=== PATIENT | female | born 1950 | race Caucasian/White ===

== ENCOUNTER 2020-06-01 19:37 | Inpatient (IN) | payer OTHER, SELFPAY ==
--- NOTE | ~2020-06-01 | NM_ITS ---
EXAMINATION: NM josefina stress w perfusion DATE: 06/03/2020 10:17 INDICATION: Preoperative risk assessment. Cardiac risk factors of hypertension. TECHNIQUE: Rest images were obtained following intravenous administration of 10.5 mCi Tc99m tetrofosm in (Myoview). The patient was infused intravenously with Lexiscan (Regadenoson). Then, 32.1 mCi Tc99m tetrofosmin (Myoview) was administered intravenously, and stress images were obtained. Data was jaclyn nstructed into short axis and horizontal and vertical long axis SPECT images. Gated SPECT images were also obtained. COMPARISON: None. FINDINGS: There is no definite reversible or fixed perfusion abnormality to suggest ischemia or infar ction. There is normal left ventricular chamber size, wall motion and ejection fraction. Left ventr icular ejection fraction measures 59%. IMPRESSION: 1. Normal myocardial perfusion at rest and during stress. 2. Left ventricular ejection fraction measuring 59%. Reviewed, dictated and finalized at location A.
--- NOTE | ~2020-06-01 | US_ITS ---
US renal BI 06/04/2020 11:36 Procedure: Realtime transabdominal ultrasound of the kidneys and bladder. Indication: Elevated creatinine Comparison: No prior studies for comparison. Findings: Renal echotexture is normal bilaterally without contour deforming mass or renal calculus. T he right kidney measures 8.5 cm and left kidney measures 8.5 cm. There is mild left hydronephrosis. Impression: 1: Mild left hydronephrosis. Otherwise, unremarkable renal ultrasound. Reviewed, dictated and finalized at location A. Impression: 1: Mild left hydronephrosis. Otherwise, unremarkable renal ultrasound.
--- NOTE | ~2020-06-01 | XR_ITS ---
EXAMINATION: XR hip LT 2V w AP pelvis EXAM DATE: 06/01/2020 20:50 INDICATION: Fall, left hip fracture. TECHNIQUE: Left hip frontal, crosstable lateral projections for interpretation. Frontal projection pe lvis. There is no prior study for comparison. FINDINGS: There is acute closed posttraumatic comminuted left hip intertrochanteric fracture with sulaiman e posterior medial angulation and some displacement. The pelvic ring appears intact. There are arteri al calcifications, arteriosclerosis. No radiopaque foreign bodies identified. IMPRESSION: Acute comminuted left hip intertrochanteric fracture with some angulation, displacement. Reviewed, dictated and finalized at location A. IMPRESSION: Acute comminuted left hip intertrochanteric fracture with some angu lation, displacement.
--- NOTE | ~2020-06-01 | XR_ITS ---
EXAMINATION: XR surgery orthopedic EXAM DATE: 06/03/2020 16:38 INDICATION: Left hip fracture, gamma nail insertion. TECHNIQUE: Fluoroscopy used during XR surgery orthopedic performed by Dr. Jay Reyes MD. The DAP for this procedure was 0.7 mGym2. FINDINGS: Images demonstrate comminuted left hip intertrochanteric and trochanteric fractures which have been surgically fixed with a gamma nail. Correlate with procedure note. IMPRESSION: Fluoroscopy used during XR surgery orthopedic. Reviewed, dictated and finalized at location A.
--- NOTE | ~2020-06-01 | XR_ITS ---
EXAMINATION: XR chest 1V portable EXAM DATE: 06/01/2020 20:49 INDICATION: Fall, hip fracture. Hypertension. TECHNIQUE: Portable AP frontal chest x-ray was obtained. There is no prior study for comparison. FINDINGS: The lungs are clear. There are no pleural effusions. Cardiac silhouette is prominent but magnified on this AP technique. There is no pneumothorax suspected. The bones are osteopenic. The re are bony degenerative changes. There are old right rib fractures. Right shoulder hardware. There i s aortic arteriosclerosis. IMPRESSION: No acute cardiopulmonary findings. Reviewed, dictated and finalized at location A.
[2020-06-01 19:36] VITALS: BP 191/80; PULSE 93; RESP 17; O2SAT 100
--- NOTE | 2020-06-01 19:52 | ECG_ITS ---
Measurements Intervals [place] Rate: 95 P: 28 AL: 170 QRS: 9 QRSD: 78 T: 59 QT: 325 QTc: 410 Interpretive Statements SINUS RHYTHM VOLTAGE CRITERIA FOR LVH BORDERLINE ST-T WAVE ABNORMALITY- HIGH LATERAL LEADS BASELINE ARTIFACT- I, II, III BORDERLINE ECG Electronically Signed On 06-02-2020 6:58:09 CDT by Praneeth Vergara D.O.
--- NOTE | 2020-06-01 19:52 | ED.FALL ---
HPI - Fall General Chief Complaint: Fall Stated Complaint: FALL, HIP Time Seen by Provider: 06/01/20 19:38 History of Present Illness HPI Narrative: Trip and fall this evening this evening. Pain in the left hip. Severe. Associated with shortening and rotation of the left leg. She denies hitting her head or sustaining any other injury. No syncope, seizure, weakness, laceration Related Data Home Medications Medication Instructions Recorded Confirmed Keyla SoloStar U-300 Insulin 35 unit SUBCUT DAILY 06/01/20 06/01/20 alendronate 70 mg PO WEEKLY 06/01/20 06/01/20 aspirin 81 mg PO DAILY 06/01/20 06/01/20 atorvastatin 40 mg PO HS 06/01/20 06/01/20 ferrous sulfate 325 mg PO BID 06/01/20 06/01/20 insulin aspart U-100 [Novolog 5 unit SUBCUT TID 06/01/20 06/01/20 Flexpen U-100 Insulin] mirtazapine 30 mg PO HS 06/01/20 06/01/20 omeprazole 40 mg PO DAILY 06/01/20 06/01/20 ondansetron 4 mg PO Q6H PRN 06/01/20 06/01/20 Allergies Allergy/AdvReac Type Severity Reaction Status Date / Time No Known Allergies Allergy Verified 06/01/20 19:46 Review of Systems Review of Systems: All systems reviewed & are unremarkable except as noted in HPI and below Constitutional: Constitutional: Denies fever(s) and Denies weakness ENT: Denies dizziness Cardiovascular: Cardiovascular: Denies chest pain Respiratory: Respiratory: Denies dyspnea Musculoskeletal: Musculoskeletal: Denies back pain Neurologic: Denies confusion, Denies dizziness and Denies weakness [facility] Past Medical History Medical History Essential hypertension Hyperlipidemia Iron deficiency anemia Macular degeneration Type 2 diabetes mellitus Vitamin D deficiency Surgical History Surgical History History of shoulder fracture status post ORIF Status post bilateral cataract extraction Family History Family History Father Lymphoma Mother Heart disease S/P CABG x 5 Social History Social History Social History: The patient lives in [place] with her sister and a friend. She has never been and does not have any children. 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 She is a lifelong nonsmoker and does not drink alcohol or use illicit substances. Between the 3 of them they have 6 dogs in the home. Primary care physician: Dr. Kendrick She does not have any advanced directives. She would like her sister Dariela to be her surrogate decision maker. Smoking status: Never smoker Alcohol intake: current Drinks per week: 1 Substance use: never Gender identity (if verbalized by the patient): Female Spiritual care concerns: No Exam Const: General: no acute distress and alert Orientation/consciousness: patient oriented x3 HENMT: Head: normal to inspection Resp: Effort & Inspection: normal respiratory effort Auscultation: clear to auscultation bilaterally Cardio: Rate: regular rate Rhythm: regular rhythm Skin: General skin exam: pallor Wounds: no wounds Neuro: General: patient oriented x3, moves all extremities, no focal motor deficits and CN's II-XI intact bilaterally Speech: normal speech Extrem: Other: Left hip deformity and tenderness. Left leg shortened and internally rotated. Course Vital Signs Vital signs: Vital Signs Pulse Rate 93 06/01/20 19:36 Respiratory Rate 17 06/01/20 19:36 Blood Pressure 191/80 H 06/01/20 19:36 Pulse Oximetry 100 06/01/20 19:36 Temperature 36.3 C L 06/06/20 06:00 Pulse Rate 93 06/06/20 06:00 Respiratory Rate 16 06/06/20 06:00 Blood Pressure 153/51 H 06/06/20 06:00 Pulse Oximetry 98 06/06/20 09:50 MDM - Fall Medical Records Attestation: I reviewed the patient's medical records. Lab Data Attestation: I reviewed the pa
[2020-06-01] MEDS: MORPHINE SULFATE 4 MG/ML INJ IV PUSH ×2 (20:06→22:15)
[2020-06-01 20:42] LABS: Basophils Absolute Auto 0.1 K/mm3 (0.0-0.1); Basophils Percent Auto 0.6 % (0.2-1.2); Eosinophils Absolute Auto 0.3 K/mm3 (0-0.3); Eosinophils Percent Auto 2.4 % (0-4.4); Hematocrit 32.4 % (37.0-47.0); Hemoglobin 10.2 g/dL (12.0-15.0); Immature Granulocyte Absolute 0.09 K/mm3 (0.00-0.031); Immature Granulocyte Percent A 0.7 % (0-0.5); Lymphocytes Absolute Auto 2.78 K/mm3 (0.9-3.2); Lymphocytes Percent Auto 21.8 % (18.3-44.2); Mean Corpuscular HGB Conc 31.5 g/dl (32-36); Mean Corpuscular Hemoglobin 30.1 pg (26-34); Mean Corpuscular Volume 95.6 fl (80-100); Mean Platelet Volume 9.6 fl (7.4-10.4); Monocytes Percent Auto 7.8 % (2.6-8.5); Neutrophils Absolute Auto 8.5 K/mm3 (1.3-6.7); Neutrophils Percent Auto 66.7 % (45.5-73.1); Platelet Count Result 371 k/mm3 (150-375); Red Blood Count 3.39 M/mm3 (4.2-5.4); Red Cell Distribution Width 13.4 % (11.5-14.5); White Blood Count 12.7 K/mm3 (4.5-10.0)
[2020-06-01 20:52] LABS: Partial Thromboplastin Time 24.2 SECONDS (22.3-36.8); Prothrombin Time 12.5 Seconds (11.1-14.7)
[2020-06-01 20:59] LABS: Anion Gap 7 mmol/L (8-16); Blood Urea Nitrogen 36 mg/dL (7-17); Carbon Dioxide 20 mmol/L (22-30); Chloride 109 mmol/L (98-107); Estimated CRCL calculation 18 ml/min; Estimated Glomerular Filt Rate 22; Glucose 163 mg/dL (65-105); Potassium 6.3 mmol/L (3.4-5.0); Sodium 136 mmol/L (137-145)
[2020-06-01] MEDS: INSULIN HUMAN REGULAR (*BKC) 100 UNITS/ML 10 UNITS IV PUSH ×2 (21:58→23:53)
[2020-06-01] MEDS: CALCIUM GLUCONATE 1,000 MG/10 ML VIAL 1000 MG IV PUSH (21:58)
[2020-06-01] MEDS: DEXTROSE 50% 25 GM/50 ML SYRINGE IV PUSH (21:59)
[2020-06-01] MEDS: SODIUM CHLORIDE 0.9% IV 1,000 ML 999 ML IV CONT (22:01)
[2020-06-01 22:20] LABS: Add Urine Microscopic? YES; Appearance Urine Clear (Clear); Bilirubin Urine Negative (Negative); Blood Urine 1+ (Negative); Color Urine Straw (Yellow); Glucose Urine UA 3+ mg/dL (Negative); Ketones Urine Negative (Negative); Leukocyte Esterase Ur Negative LEU/UL (Negative); Mucus Urine Rare /lpf; Nitrate Urine Negative (Negative); Protein Urine 1+ mg/dL (Negative); RBC Urine 0-2 /hpf (0-2); Specific Grav Ur 1.015 (1.001-1.035); Squamous Epithelial Cell Urine Rare /hpf (Few); Urobilinogen Urine Negative mg/dL (<2.0); WBC Urine 0-3 /hpf
[2020-06-01] MEDS: SODIUM POLYSTYRENE SULFONONATE 15 GM/60 ML BTL PO (22:42)
[2020-06-01 22:43] VITALS: BP 176/104; PULSE 108; RESP 18; O2SAT 100
[2020-06-01] MEDS: SODIUM BICARBONATE 8.4% 50 MEQ/50 ML VIAL IV PUSH (22:43)
[2020-06-01 22:54] LABS: Glucose Point of Care 357 (65-105)
[2020-06-01 23:15] VITALS: PULSE 107
[2020-06-01] MEDS: LABETALOL HCL INJ 100 MG/20 ML VIAL 20 MG IV PUSH (23:15)
[2020-06-01 23:42] VITALS: BP 162/68; PULSE 80; RESP 18; O2SAT 99
[2020-06-02] VITALS (23 sets, daily range): BP systolic 134–214; BP diastolic 62–80; PULSE 75–108; RESP 14–20; TEMP 35.7–36.6; O2SAT 98–100; BMI 23.6
[2020-06-02 00:11] LABS: Glucose Point of Care 263 (65-105)
[2020-06-02 00:19] LABS: Glucose Point of Care 221 (65-105)
[2020-06-02] MEDS: LACTATED RINGERS 1,000 ML 100 ML IV CONT ×2 (00:40→17:06)
[2020-06-02 00:45] LABS: Anion Gap 6 mmol/L (8-16); Blood Urea Nitrogen 34 mg/dL (7-17); Calcium 8.6 mg/dL (8.4-10.2); Carbon Dioxide 21 mmol/L (22-30); Chloride 110 mmol/L (98-107); Estimated CRCL calculation 21 ml/min; Estimated Glomerular Filt Rate 26; Glucose 224 mg/dL (65-105); Sodium 137 mmol/L (137-145)
--- NOTE | 2020-06-02 01:09 | ADMGEN ---
This patient, Joaquina Mcguire, was admitted to IMU Room 201-01 FROM ER 06/02/20 0000. Patient/family oriented to hospital policies and general routines including ID bracelet, bed and alarms, visiting hours, pain management, procedures, bathroom and other care routines, personal items, smoking policy, room service/diet, and visiting hours. Valuables list has been completed. Information on how to activate the Rapid Response Team has been discussed. Patient/Family are encouraged to report perceived risks to care and to ask questions if they do not understand what they are told or what they should do.
[2020-06-02] MEDS: ONDANSETRON INJ 4 MG/2 ML VIAL IV PUSH ×3 (01:41→23:26)
[2020-06-02] MEDS: MORPHINE SULFATE 4 MG/ML INJ IV PUSH ×2 (02:44→05:31)
[2020-06-02 04:27] LABS: Basophils Absolute Auto 0.1 K/mm3 (0.0-0.1); Basophils Percent Auto 0.5 % (0.2-1.2); Eosinophils Percent Auto 0.2 % (0-4.4); Hematocrit 26.9 % (37.0-47.0); Hemoglobin 8.4 g/dL (12.0-15.0); Immature Granulocyte Absolute 0.08 K/mm3 (0.00-0.031); Immature Granulocyte Percent A 0.5 % (0-0.5); Lymphocytes Absolute Auto 1.61 K/mm3 (0.9-3.2); Mean Corpuscular HGB Conc 31.2 g/dl (32-36); Mean Corpuscular Hemoglobin 30.2 pg (26-34); Mean Corpuscular Volume 96.8 fl (80-100); Mean Platelet Volume 9.4 fl (7.4-10.4); Monocytes Absolute Auto 1.1 K/mm3 (0.1-0.6); Monocytes Percent Auto 7.2 % (2.6-8.5); Neutrophils Absolute Auto 11.7 K/mm3 (1.3-6.7); Neutrophils Percent Auto 80.6 % (45.5-73.1); Platelet Count Result 315 k/mm3 (150-375); Red Blood Count 2.78 M/mm3 (4.2-5.4); Red Cell Distribution Width 13.3 % (11.5-14.5); White Blood Count 14.6 K/mm3 (4.5-10.0)
[2020-06-02 04:43] LABS: Anion Gap 6 mmol/L (8-16); Blood Urea Nitrogen 32 mg/dL (7-17); Calcium 8.8 mg/dL (8.4-10.2); Carbon Dioxide 23 mmol/L (22-30); Chloride 109 mmol/L (98-107); Estimated CRCL calculation 22 ml/min; Estimated Glomerular Filt Rate 28; Glucose 157 mg/dL (65-105); Potassium 5.9 mmol/L (3.4-5.0); Sodium 138 mmol/L (137-145)
[2020-06-02 05:24] LABS: Creatine Kinase 99 U/L (30-135)
[2020-06-02] MEDS: CALCIUM GLUC 1,000 MG/NS 50 ML 1,000 MG/50 ML BAG 300 MG IVPB (05:33)
[2020-06-02 06:19] LABS: Glucose Point of Care 153 (65-105)
[2020-06-02] MEDS: DEXTROSE 50% 25 GM/50 ML SYRINGE IV PUSH ×2 (06:42→11:34)
[2020-06-02] MEDS: INSULIN HUMAN REGULAR (*BKC) 100 UNITS/ML IV PUSH ×2 (06:42→11:34)
[2020-06-02 07:06] LABS: Glucose Point of Care 293 (65-105)
--- NOTE | 2020-06-02 07:47 | PM.CNOR ---
Assessment and Plan Additional Plan Patient is a 70-year-old female who lives in [place] and was here locally at a relative's visitation and stumbled on some rocks outside of the home and sustained a comminuted displaced left intertrochanteric hip fracture. She denies any other injury. Her past medical history is not yet noted in the chart. She does have history of osteoporosis and insulin-dependent diabetes and hypertension. Her vitamin-D level is very low at 14 and we have ordered supplementation. She also has chronic renal failure and her admitting creatinine was 2.2. His chronic anemia her hemoglobin at this time is 8.4 down from 10.4 last night. She takes iron chronically. Her family history is significant for her grandmother having the severe heart attack at in her 70s and her mother undergoing coronary artery bypass. Patient states she has had no history of any heart problems except for the hypertension. Approximately 5 years ago she had a reverse right total shoulder arthroplasty did not have any heart problems with that procedure. She has no known drug allergies. Her white count is elevated at 14.8. Urine [place] is showed no signs of infection there. On exam she is alert and oriented. The left leg is shortened about an inch externally rotated 90?. She has it position comfortably. She does complain of some cramping at the left thigh. She is throwing up and I think this is due to the 4 mg IV morphine dose and I have reduced to 2 mg every 1 hour IV as needed and we will also add IV Tylenol for preoperative pain control. She has a 2+ dorsalis pedis pulse palpable. She denies numbness or tingling in the foot or ankle and has no lower extremity swelling skin looks healthy. The knee shows no swelling. Impression patient has a comminuted 4 part intertroch subtroch femur fracture and will recur this will require open reduction internal fixation. She is a community ambulator. She does have some significant risk factors for coronary artery disease and risk of complications both cardiac and renal postoperatively. I would recommend we asked the non food receiving clerk to see her this morning and I have made arrangements if she is felt to be stable to proceed with surgery for open reduction internal fixation at 3:30 a.m. this afternoon. Her potassium on admission was critically elevated at 6.9 and is now down to 5.9. I have discussed risks of surgery with her in detail. She has no personal or family history of DVT. She has had no recent infections that she knows of. I discussed with her that she is at significant risk for heart complications and her renal of failure when compared to the usual patient. These complications and can be severe and risk of mortality is present the situation. She understands wished to proceed as soon as we can as she is quite uncomfortable of course. History of Present Illness HPI Consult date: 06/02/20 Chief complaint: Left hip fracture, hyperkalemia [facility] Family History Family History (Updated 06/02/20 @ 01:11 by Marina Gomez RN) Father Cancer Mother Heart disease Social History Social History Smoking status: Never smoker Alcohol intake: current Drinks per week: 1 Substance use: never Gender identity (if verbalized by the patient): Female Sexual Orientation (if Verbalized by the Patient): Straight or Heterosexual Spiritual care concerns: No Meds Home Medications and Allergies Home Medications Medication Instructions Recorded Confirmed Type alendronate 70 mg PO WEEKLY 06/01/20 06/01/20 History amlodipine [Norvasc] 2.5 mg PO DAILY 06/01/20 06/01/20 History aspirin 81 mg PO DAILY 06/01/20 06/01/20 History atorvastatin 40 mg PO HS 06/01/20 06/01/20 History ferrous sulfate 325 mg PO BID 06/01/20 06/01/20 History insulin aspart U-100 [Novolog 5 unit SUBCUT TID 06/01/20 06/01/20 History Flexpen U-100 Insulin] insulin glargine U-300 conc 35 unit ODEN
[2020-06-02] MEDS: MORPHINE SULFATE 2 MG/ML INJ IV PUSH ×4 (07:58→23:26)
[2020-06-02] MEDS: amLODIPine BESYLATE 2.5 MG TABLET PO (08:01)
[2020-06-02] MEDS: PANTOPRAZOLE 40 MG TABLET PO ×2 (08:01→18:00)
[2020-06-02] MEDS: FERROUS SULFATE 324 MG TABLET PO ×2 (08:01→18:00)
--- NOTE | 2020-06-02 08:31 | PM.IMHP ---
H&P: HPI History of Present Illness Date/Time: 06/02/20 06:00 Chief complaint: Fall with left hip pain Narrative: Joaquina Mcguire is a 70 year old female with a past medical history of osteoporosis, hypertension, type 2 diabetes mellitus and iron deficiency anemia who presented to the ER after having fallen and developing left hip pain. The patient reports that she was at her 26-year-old niece in-law's when she stumbled on some paving stones and fell. She landed on her left hip. She does not think that she hit her head or lost consciousness. She had immediate severe pain in her left hip. Her leg was shortened and rotated. The patient reports cramping pain in her left hip. Pain is even made worse with deep breathing. The patient reports that prior to her fall she was in her usual state of health. She admits that she may not have been drinking enough fluids over the last couple of days. She denies any abdominal pain. She recently was started on Norvasc 2.5 mg on 04/25/2020. She has been on lisinopril for many years. She denies taking any potassium supplements. She has not noticed a change in urinary frequency, amount, color or urgency. She denies any history of chronic kidney disease. she has had some nausea since she received morphine for her hip pain. Prior to her fall she was not having any nausea or vomiting. She has not been having any chest pain or shortness of breath. She had not noticed any lower extremity swelling, orthopnea or paroxysmal nocturnal dyspnea. She does report diarrhea associated with ferrous sulfate. She usually has to take Imodium frequently. She does have type 2 diabetes mellitus and her hemoglobin A1c earlier this year was as high as 14 but she reports she has gotten down to around 8 with medications. The patient lives in [place] in her primary care doctor is Dr. Kendrick. Review of Systems Review of Systems: Narrative: 12 systems were reviewed with pertinent positives and negatives per HPI. Except as documented in the HPI, all other systems were reviewed and are negative. [facility] Past Medical History Medical History (Updated 06/02/20 @ 09:19 by Lashae Camacho DO) Essential hypertension Hyperlipidemia Iron deficiency anemia Macular degeneration Type 2 diabetes mellitus Vitamin D deficiency Surgical History Surgical History (Updated 06/02/20 @ 09:07 by Lashae Camacho DO) History of shoulder fracture status post ORIF Status post bilateral cataract extraction Family History Family History Father Lymphoma Mother Heart disease S/P CABG x 5 Social History Social History (Updated 06/02/20 @ 09:15 by Lashae Camacho DO) Social History: The patient lives in [place] with her sister and a friend. She has never been and does not have any children. 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 She is a lifelong nonsmoker and does not drink alcohol or use illicit substances. Between the 3 of them they have 6 dogs in the home. Primary care physician: Dr. Kendrick She does not have any advanced directives. She would like her sister Dariela to be her surrogate decision maker. Smoking status: Never smoker Alcohol intake: current Drinks per week: 1 Substance use: never Gender identity (if verbalized by the patient): Female Sexual Orientation (if Verbalized by the Patient): Straight or Heterosexual Spiritual care concerns: No Meds Home Medications and Allergies Home Medications Medication Instructions Recorded Confirmed Type alendronate 70 mg PO WEEKLY 06/01/20 06/01/20 History amlodipine [Norvasc] 2.5 mg PO DAILY 06/01/20 06/01/20 History aspirin 81 mg PO DAILY 06/01/20 06/01/20 History atorvastatin 40 mg PO HS 06/01/20 06/01/20 History ferrous sulfate 325 mg PO BID 06/01/20 06/01/20 History insulin aspart U-100 [Novolog 5 unit SUBCUT TID 06/01/20 06/01/20 History Flex
--- NOTE | 2020-06-02 10:27 | PM.CNCAR ---
Assessment and Plan Assessment and plan (1) Acute renal failure: Code(s): N17.9 - Acute kidney failure, unspecified Status: Acute Assessment and Plan: Per primary service. IV fluids. Manage hyperkalemia. Continue serial potassium measurements. Defer to primary service for management in this regard. Discontinue lisinopril. Avoid potassium supplementation. this would need to be corrected prior to ischemic evaluation and/or proceeding to the operating room. (2) Preoperative cardiovascular examination: Code(s): Z01.810 - Encounter for preprocedural cardiovascular examination Status: Acute Assessment and Plan: Patient has low functional capacity well less than 4 Mets of by her description of activity tolerance. Therefore, given her risk factors, fatigue, and low functional status noninvasive ischemic evaluation with Lexiscan nuclear stress advised for risk stratification. provided hyperkalemia is resolved, BP in H&H stable plan to proceed with stress test 1st thing tomorrow morning and if without significant reversible ischemia and preserved LV function anticipate patient may proceed if necessary to the OR if she otherwise medically stable. Recommendations to follow. (3) Hyperkalemia: Code(s): E87.5 - Hyperkalemia Status: Acute Assessment and Plan: As above. (4) Anemia: Code(s): D64.9 - Anemia, unspecified Status: Acute Assessment and Plan: H&H decline 2 g since admission. Likely delutional secondary to intravascular volume depletion, underlying anemia and IV fluid. Follow H&H to exclude active bleed although no evidence at this time. Disproportionate increment in Hgb after 1 unit packed red blood cells. Repeat H&H. (5) Fracture of left hip due to osteoporosis: Code(s): M80.052A - Age-related osteoporosis with current pathological fracture, left femur, initial encounter for fracture Status: Acute Assessment and Plan: Per Orthopedic surgery. ORIF recommended per their note. DVT prophylaxis (6) Status post fall: Code(s): Z91.81 - History of falling Status: Acute Assessment and Plan: As above. (7) Dyslipidemia: Code(s): E78.5 - Hyperlipidemia, unspecified Status: Acute Assessment and Plan: continue atorvastatin. (8) Hypertension: Code(s): I10 - Essential (primary) hypertension Status: Acute Assessment and Plan: BP uncontrolled earlier today No doubt exacerbated by pain. adjustment in antihypertensive regimen. Deferred to PCP at this time. (9) Diabetes mellitus: Code(s): E11.9 - Type 2 diabetes mellitus without complications Status: Acute Assessment and Plan: Per primary service History of Present Illness History of Present Illness Consult date/time: Date of Service: 06/02/20 10:27 This is a cardiology consultation at the request of Dr. Reyes for our opinion regarding preoperative cardiovascular risk assessment. Requesting physician: Jay Reyes MD Consult reason: pre-op evaluation Reason For Visit: Fall with left hip pain Narrative: Patient is a 70-year-old female with a past medical history significant for type 2 diabetes mellitus uncontrolled, anemia, hypertension, osteoporosis who presented the ER with complaint of left hip pain after having fallen stumbling on paving stones at a . There is no report of head injury or LOC. Patient denies chest pain or shortness of breath this time. Patient denies prior known history of CAD, myocardial infarction or CHF. Patient admits she is sedentary and ambulates fairly little. She reports difficulty climbing steps, fatigue with activity although she denies alysa chest pain. She does note some shortness of breath particularly when she engages in longer walking but states chores around the home or predominantly performed by her sister. We have been asked to evaluate th
[2020-06-02] MEDS: TUBING, BLOOD PLUM PUMP TUBING 1 EACH XX (11:02)
[2020-06-02] MEDS: SODIUM CHLORIDE 0.9% IV 250 ML 30 ML IV CONT (11:02)
[2020-06-02 11:09] LABS: Anion Gap 6 mmol/L (8-16); Blood Urea Nitrogen 30 mg/dL (7-17); Calcium 9.2 mg/dL (8.4-10.2); Carbon Dioxide 25 mmol/L (22-30); Chloride 104 mmol/L (98-107); Estimated CRCL calculation 24 ml/min; Estimated Glomerular Filt Rate 30; Glucose 225 mg/dL (65-105); Potassium 5.9 mmol/L (3.4-5.0); Sodium 135 mmol/L (137-145)
[2020-06-02] MEDS: hydrALAZINE HCL 20 MG/ML VIAL 10 MG IV PUSH (11:34)
[2020-06-02] MEDS: FUROSEMIDE INJ 40 MG/4 ML VIAL IV PUSH (11:35)
[2020-06-02] MEDS: CALCIUM GLUC 1,000 MG/NS 50 ML 1,000 MG/50 ML BAG 100 MG IVPB (12:15)
[2020-06-02] MEDS: INSULIN ASPART (*BKC) 100 UNITS/ML SUB-Q ×2 (12:30→17:06)
[2020-06-02 12:32] LABS: Glucose Point of Care 340 (65-105)
[2020-06-02 13:32] LABS: Hemoglobin A1C 8.5 % (<5.7)
--- NOTE | 2020-06-02 14:01 | PM.IMPN ---
Progress Note: A&P Assessment and Plan (1) Fracture of left hip due to osteoporosis: Code(s): M80.052A - Age-related osteoporosis with current pathological fracture, left femur, initial encounter for fracture Status: Acute Assessment and Plan: S/p ground level fall on 06/01. No cardiac symptoms but she does have several cardiac risk factors including diabetes and until recently was relatively uncontrolled, essential hypertension and hyperlipidemia. Cardiology has been consulted for preop cardiac clearance. Dr. Reyes following and appreciate recommendations; awaiting preop cardiac clearance. Pain appears to be well controlled, however she may be having some nausea/vomiting with morphine. Await preop evaluation and further rec from Dr. Reyes from there Consider alternative pain medications if continued n/v Monitor (2) Hyperkalemia: Code(s): E87.5 - Hyperkalemia Status: Acute Assessment and Plan: K 5.9 again this morning. She has been given multiple rounds of calcium, bicarb, insulin/dextrose with refractory hyperkalemia. IV lasix, calcium and insulin/dextrose given again later this morning. She has no chest pains/palpitations. She does not take K supplements and has been taking lisinopril for many years. Will do BMP this afternoon for reevaluation Continue IVF as she may be volume depleted Monitor closely Consider Nephrology consult if not improving. (3) Renal failure: Code(s): N19 - Unspecified kidney failure Status: Acute Assessment and Plan: Although the patient denies history of chronic renal failure, she likely does have some baseline kidney insufficiency that she is unaware of. Cr slowly improving to 1.70 Will provide IV fluid hydration and repeat electrolyte panel as discussed above. Monitor closely Consider Nephrology consult if no improvement (4) Diabetes mellitus: Code(s): E11.9 - Type 2 diabetes mellitus without complications Status: Acute Assessment and Plan: Reportedly, patient has had significant improvement in her A1c (14 several months ago down to around 8 just this past couple of weeks per patient). A1c 8.5 today Will do 35 u Lantus daily 5 u short acting insulin with meals Accuchecks ACHS, hypoglycemia protocol, correctional insulin, diabetic diet if tolerated Monitor closely (5) Hypertension: Code(s): I10 - Essential (primary) hypertension Status: Acute Assessment and Plan: BP has been significantly elevated into 200s sys earlier this morning; improved with IV hydralazine, although still elevated Continue home antihypertensives IV hydralazine PRN Monitor and adjust accordingly (6) Dyslipidemia: Code(s): E78.5 - Hyperlipidemia, unspecified Status: Acute Assessment and Plan: Will do CMP tomorrow Continue statin (7) Anemia: Code(s): D64.9 - Anemia, unspecified Status: Acute Assessment and Plan: Hgb 8.4 this morning; being transfussed [address] Reyes. Monitor closely Transfuse PRN Continue iron supplement if not NPO Subjective Date/time seen: 06/02/20 14:01 Interval history: Patient is a 70 year old female with a past medical history of osteoporosis, hypertension, type 2 diabetes mellitus and iron deficiency anemia who is here for evaluation of left hip fracture s/p fall on 06/01. Patient states she feels okay today, although still having ongoing nausea/vomiting she thinks is associated with morphine and some [place] in her b/l lower legs. She has no other complaints other than wanting to eat. Denies f/c/s, headaches, dizziness, lightheadedness, cp/palpitations, sob/cough, d/c, abd
[2020-06-02 15:27] LABS: Hematocrit 37.8 % (37.0-47.0); Hemoglobin 12.6 g/dL (12.0-15.0); Mean Corpuscular HGB Conc 33.3 g/dl (32-36); Mean Corpuscular Volume 93.1 fl (80-100); Mean Platelet Volume 9.7 fl (7.4-10.4); Platelet Count Result 308 k/mm3 (150-375); Red Blood Count 4.06 M/mm3 (4.2-5.4); Red Cell Distribution Width 13.6 % (11.5-14.5); White Blood Count 15.7 K/mm3 (4.5-10.0)
[2020-06-02 15:40] LABS: Anion Gap 10 mmol/L (8-16); Blood Urea Nitrogen 30 mg/dL (7-17); Calcium 9.6 mg/dL (8.4-10.2); Carbon Dioxide 23 mmol/L (22-30); Chloride 103 mmol/L (98-107); Estimated CRCL calculation 22 ml/min; Estimated Glomerular Filt Rate 28; Glucose 281 mg/dL (65-105); Potassium 5.8 mmol/L (3.4-5.0); Sodium 136 mmol/L (137-145)
[2020-06-02 16:09] LABS: Glucose Point of Care 237 (65-105)
[2020-06-02] MEDS: SODIUM POLYSTYRENE SULFONONATE 15 GM/60 ML BTL PO (18:00)
[2020-06-02] MEDS: MIRTAZAPINE SOLTAB 15 MG TAB.DISPER 30 MG PO (20:00)
[2020-06-02] MEDS: ATORVASTATIN 40 MG TABLET PO (20:00)
[2020-06-02 20:44] LABS: Glucose Point of Care 188 (65-105)
[2020-06-02] MEDS: INSULIN GLARGINE (*BKC) 100 UNITS/ML 35 UNITS SUB-Q (21:12)
[2020-06-02 21:33] LABS: Anion Gap 11 mmol/L (8-16); Blood Urea Nitrogen 32 mg/dL (7-17); Calcium 9.3 mg/dL (8.4-10.2); Carbon Dioxide 25 mmol/L (22-30); Chloride 100 mmol/L (98-107); Estimated CRCL calculation 22 ml/min; Estimated Glomerular Filt Rate 28; Glucose 207 mg/dL (65-105); Potassium 5.4 mmol/L (3.4-5.0); Sodium 136 mmol/L (137-145)
[2020-06-03] VITALS (21 sets, daily range): BP systolic 109–190; BP diastolic 51–76; PULSE 83–119; RESP 15–22; TEMP 36.1–37.2; O2SAT 95–100
--- NOTE | 2020-06-03 | EST_ITS ---
Patient Info Name: Joaquina Mcguire Age: 70 years : 1950 Gender: Female Ht: 64 in Wt: 137 lbs BSA: 1.68 m2 Heart Rhythm: Sinus Rhythm Exam Date: 06/03/2020 8:29 AM Exam Location: [facility] Stress Patient Status: Inpatient Admit Date: 06/01/2020 Staff Ordering Physician: Eduardo Saldana MD Attending Provider: Keyshawn Lennon PA-C Exercise Technologist: Gabrielle Davidson RDCS Exam Type: CA stress josefina w NM Study Info Indications Z01.818 - Encounter for other preprocedural examination A regadenoson stress test was performed. Summary 1. No changes meeting strict criteria for myocardial ischemia with Lexiscan compared to baseline. 2. No arrhythmias were observed during the examination. 3. No chest discomfort with stress test. 4. Please correlate with nuclear medicine images, reported separately. Protocol: Lexiscan Stress ECG Details Stage: REST Duration (min): 6 min : 49 sec HR (bpm): 113 SBP (mmHg): 200 DBP (mmHg): 66 Stage: REST Duration (min): 18 min : 19 sec HR (bpm): 113 SBP (mmHg): 200 DBP (mmHg): 66 Stage: STAGE 1 Duration (min): 1 min : 0 sec HR (bpm): 125 SBP (mmHg): 200 DBP (mmHg): 66 Stage: RECOVERY Duration (min): 1 min : 0 sec HR (bpm): 125 SBP (mmHg): 170 DBP (mmHg): 52 Stage: RECOVERY Duration (min): 2 min : 0 sec HR (bpm): 124 SBP (mmHg): 170 DBP (mmHg): 52 Stage: RECOVERY Duration (min): 3 min : 0 sec HR (bpm): 121 SBP (mmHg): 170 DBP (mmHg): 52 Stage: RECOVERY Duration (min): 4 min : 0 sec HR (bpm): 121 SBP (mmHg): 170 DBP (mmHg): 52 Stage: RECOVERY Duration (min): 4 min : 48 sec HR (bpm): 115 SBP (mmHg): 172 DBP (mmHg): 56 Rest HR: 113 bpm Peak HR: 126 bpm Rest Sys BP: 200 mmHg Peak Sys BP: 172 mmHg Max Pred HR: 149 bpm % Max Pred HR: 85 % Target HR: 127 bpm Max RPP: 21,672 bpm*mmHg BP Response: Normal blood pressure response Termination Reason: Completed protocol Cardiac Symptoms: None Total Time: 1 min : 0 sec Rest Robbins BP: 66 mmHg Peak Robbins BP: 56 mmHg Total Dose: 0.4 mg Resting ECG Sinus tachycardia, nonspecific ST abnormality inferior leads. Stress ECG No changes meeting strict criteria for myocardial ischemia with Lexiscan compared to baseline. Arrhythmias No arrhythmias were observed during the examination. Report Signatures
[2020-06-03] MEDS: LACTATED RINGERS 1,000 ML 100 ML IV CONT ×2 (02:13→10:28)
[2020-06-03 04:28] LABS: Hematocrit 33.2 % (37.0-47.0); Hemoglobin 10.9 g/dL (12.0-15.0); Mean Corpuscular HGB Conc 32.8 g/dl (32-36); Mean Corpuscular Hemoglobin 30.7 pg (26-34); Mean Corpuscular Volume 93.5 fl (80-100); Mean Platelet Volume 9.4 fl (7.4-10.4); Platelet Count Result 305 k/mm3 (150-375); Red Blood Count 3.55 M/mm3 (4.2-5.4); Red Cell Distribution Width 13.8 % (11.5-14.5); White Blood Count 15.5 K/mm3 (4.5-10.0)
[2020-06-03 04:57] LABS: Alanine Aminotransferase 15 U/L (4-35); Albumin Level 3.6 g/dL (3.5-5.1); Alkaline Phosphatase 91 U/L (38-126); Anion Gap 8 mmol/L (8-16); Aspartate Amino Transferase 16 U/L (14-36); Bilirubin,Total 0.4 mg/dL (0.2-1.3); Blood Urea Nitrogen 31 mg/dL (7-17); Calcium 8.9 mg/dL (8.4-10.2); Carbon Dioxide 26 mmol/L (22-30); Chloride 100 mmol/L (98-107); Estimated CRCL calculation 22 ml/min; Estimated Glomerular Filt Rate 28; Glucose 183 mg/dL (65-105); Magnesium 1.3 mg/dL (1.6-2.3); Potassium 5.2 mmol/L (3.4-5.0); Sodium 134 mmol/L (137-145)
[2020-06-03] MEDS: MORPHINE SULFATE 2 MG/ML INJ IV PUSH (05:28)
--- NOTE | 2020-06-03 10:19 | PM.PNCARD ---
Progress Note: A&P Assessment and Plan (1) Acute renal failure: Code(s): N17.9 - Acute kidney failure, unspecified Status: Acute Assessment and Plan: IV fluids. Potassium 5.4 this morning. Creatinine is stable Defer to primary service for management. Avoid potassium supplementation. (2) Preoperative cardiovascular examination: Code(s): Z01.810 - Encounter for preprocedural cardiovascular examination Status: Acute Assessment and Plan: She has low functional capacity well less than 4 Mets of by her description of activity tolerance. Given her risk factors, fatigue, and low functional status Lexiscan nuclear stress risk stratification. Lexiscan pending. (3) Hyperkalemia: Code(s): E87.5 - Hyperkalemia Status: Acute Assessment and Plan: As above. (4) Anemia: Code(s): D64.9 - Anemia, unspecified Status: Acute Assessment and Plan: H&H decline 2 g since admission. Likely delutional secondary to intravascular volume depletion, underlying anemia and IV fluid. Follow H&H to exclude active bleed although no evidence at this time. Management per primary service (5) Fracture of left hip due to osteoporosis: Code(s): M80.052A - Age-related osteoporosis with current pathological fracture, left femur, initial encounter for fracture Status: Acute Assessment and Plan: Per Orthopedic surgery. ORIF recommended per their note. (6) Status post fall: Code(s): Z91.81 - History of falling Status: Acute Assessment and Plan: As above. (7) Dyslipidemia: Code(s): E78.5 - Hyperlipidemia, unspecified Status: Acute Assessment and Plan: Continue atorvastatin. (8) Hypertension: Qualifiers: Hypertension type: essential hypertension Qualified Code(s): I10 - Essential (primary) hypertension Code(s): I10 - Essential (primary) hypertension Status: Acute Assessment and Plan: BP remains elevated at times but improved. Management per primary team while avoiding ACEI or ARB (9) Diabetes mellitus: Code(s): E11.9 - Type 2 diabetes mellitus without complications Status: Acute Assessment and Plan: Per primary service Additional Plan Plan discussed with Dr Saldana 89906/03/2020 Subjective Date/time seen: 06/03/20 08:45 Assessment done in stress lab Interval history: Follow-up for: Preop assessment for left hip fracture status post fall 06/01. History of osteoporosis, hypertension, type 2 diabetes mellitus and iron deficiency anemia Date of service: 06/03/2020 Subjective: Denied any discomforts. No shortness of breath or lightheadedness. No further vomiting since yesterday evening. Did eat small amount of dinner. Review of Systems Review of Systems: All systems reviewed & are unremarkable except as noted in HPI and below Constitutional: Constitutional: Reports as per HPI, Reports body ache(s) and Reports fatigue Eyes: Eyes: Denies blurry vision ENT: Reports Normal hearing present and Denies epistaxis Cardiovascular: Cardiovascular: Reports as per HPI, Denies chest pain, Denies leg edema, Denies lightheadedness, Denies palpitations, Denies dyspnea and Denies dyspnea on exertion Respiratory: Respiratory: Reports as per HPI, Denies dyspnea, Denies dyspnea on exertion and Denies wheezing Gastrointestinal: Gastrointestinal: Reports as per HPI, Denies abdominal pain, Denies melena, Denies hematochezia, Denies nausea and Denies vomiting Genitourinary: Genitourinary: Denies hematuria and Denies dysuria Musculoskeletal: Musculoskeletal: Reports as per HPI, Repo
[2020-06-03] MEDS: ONDANSETRON INJ 4 MG/2 ML VIAL IV PUSH (10:22)
[2020-06-03 10:26] LABS: Glucose Point of Care 167 (65-105)
[2020-06-03] MEDS: PANTOPRAZOLE 40 MG TABLET PO ×2 (10:29→18:46)
[2020-06-03] MEDS: FERROUS SULFATE 324 MG TABLET PO ×2 (10:29→18:46)
[2020-06-03] MEDS: amLODIPine BESYLATE 5 MG TABLET PO (10:29)
[2020-06-03] MEDS: ASPIRIN 81 MG CHEWABLE TABLET PO (10:30)
[2020-06-03] MEDS: MAGNESIUM SULF 2 GM/WATER 50ML 2 GM/50 ML BAG IVPB (10:37)
--- NOTE | 2020-06-03 10:52 | P.PNIM_ITS ---
Progress Note: A&P Assessment and Plan (1) Fracture of left hip due to osteoporosis: Code(s): M80.052A - Age-related osteoporosis with current pathological fracture, left femur, initial encounter for fracture Status: Acute Assessment and Plan: S/p ground level fall on 06/01. No cardiac symptoms but she does have several cardiac risk factors including diabetes and, until recently, has relatively uncontrolled essential hypertension and hyperlipidemia. Cardiology has been consulted for preop cardiac clearance; Negative stress test today with normal EF. Dr. Reyes following and appreciate recommendations. Pain appears to be well controlled. Vomiting has improved * Await further rec from Dr. Reyes * Consider alternative pain medications if continued n/v * Monitor (2) Hyperkalemia: Code(s): E87.5 - Hyperkalemia Status: Acute Assessment and Plan: K 5.2; improved this morning. She has no chest pains/palpitations. She does not take K supplements and has been taking lisinopril for many years. * Will do BMP this evening after surgery to ensure K is normalizing * Continue IVF as she may be volume depleted * Monitor closely * Consider Nephrology consult if not improving. (3) Renal failure: Code(s): N19 - Unspecified kidney failure Status: Acute Assessment and Plan: Although the patient denies history of chronic renal failure, she likely does have some baseline kidney insufficiency that she is unaware of. Cr stable at 1.80 * Will provide IV fluid hydration and repeat electrolyte panel as discussed above. * Monitor closely * Consider Nephrology consult if no improvement (4) Diabetes mellitus: Code(s): E11.9 - Type 2 diabetes mellitus without complications Status: Acute Assessment and Plan: Reportedly, patient has had significant improvement in her A1c (14 several months ago down to around 8 just this past couple of weeks per patient). A1c 8.5 this stay * Will do 35 u Lantus daily * 5 u short acting insulin with meals * Accuchecks ACHS, hypoglycemia protocol, correctional insulin, diabetic diet if tolerated * Monitor closely (5) Hypertension: Qualifiers: Hypertension type: essential hypertension Qualified Code(s): I10 - Essential (primary) hypertension Code(s): I10 - Essential (primary) hypertension Status: Acute Assessment and Plan: BP has been significantly elevated into 200s sys earlier in stay; improved with IV hydralazine, although still elevated. Increase amlodipine to 5.0 mg daily * Lisinopril held due to renal function/hyperkalemia * Continue with increased dose of amlodipine for now * IV hydralazine PRN * Monitor and adjust accordingly (6) Dyslipidemia: Code(s): E78.5 - Hyperlipidemia, unspecified Status: Acute Assessment and Plan: LFTs wnl * Continue statin (7) Anemia: Code(s): D64.9 - Anemia, unspecified Status: Acute Assessment and Plan: Hgb 10.9 this morning after being transfused 1 u pRBC yesterday per Dr. Reyes. * Monitor closely * Transfuse PRN * Continue iron supplement if not NPO Subjective Date/time seen: 06/03/20 10:52 Interval history: Patient is a 70 year old female with a past medical history of osteoporosis, hypertension, type 2 diabetes
--- NOTE | 2020-06-03 10:52 | PM.IMPN ---
Progress Note: A&P Assessment and Plan (1) Fracture of left hip due to osteoporosis: Code(s): M80.052A - Age-related osteoporosis with current pathological fracture, left femur, initial encounter for fracture Status: Acute Assessment and Plan: S/p ground level fall on 06/01. No cardiac symptoms but she does have several cardiac risk factors including diabetes and, until recently, has relatively uncontrolled essential hypertension and hyperlipidemia. Cardiology has been consulted for preop cardiac clearance; Negative stress test today with normal EF. Dr. Reyes following and appreciate recommendations. Pain appears to be well controlled. Vomiting has improved Await further rec from Dr. Reyes Consider alternative pain medications if continued n/v Monitor (2) Hyperkalemia: Code(s): E87.5 - Hyperkalemia Status: Acute Assessment and Plan: K 5.2; improved this morning. She has no chest pains/palpitations. She does not take K supplements and has been taking lisinopril for many years. Will do BMP this evening after surgery to ensure K is normalizing Continue IVF as she may be volume depleted Monitor closely Consider Nephrology consult if not improving. (3) Renal failure: Code(s): N19 - Unspecified kidney failure Status: Acute Assessment and Plan: Although the patient denies history of chronic renal failure, she likely does have some baseline kidney insufficiency that she is unaware of. Cr stable at 1.80 Will provide IV fluid hydration and repeat electrolyte panel as discussed above. Monitor closely Consider Nephrology consult if no improvement (4) Diabetes mellitus: Code(s): E11.9 - Type 2 diabetes mellitus without complications Status: Acute Assessment and Plan: Reportedly, patient has had significant improvement in her A1c (14 several months ago down to around 8 just this past couple of weeks per patient). A1c 8.5 this stay Will do 35 u Lantus daily 5 u short acting insulin with meals Accuchecks ACHS, hypoglycemia protocol, correctional insulin, diabetic diet if tolerated Monitor closely (5) Hypertension: Qualifiers: Hypertension type: essential hypertension Qualified Code(s): I10 - Essential (primary) hypertension Code(s): I10 - Essential (primary) hypertension Status: Acute Assessment and Plan: BP has been significantly elevated into 200s sys earlier in stay; improved with IV hydralazine, although still elevated. Increase amlodipine to 5.0 mg daily Lisinopril held due to renal function/hyperkalemia Continue with increased dose of amlodipine for now IV hydralazine PRN Monitor and adjust accordingly (6) Dyslipidemia: Code(s): E78.5 - Hyperlipidemia, unspecified Status: Acute Assessment and Plan: LFTs wnl Continue statin (7) Anemia: Code(s): D64.9 - Anemia, unspecified Status: Acute Assessment and Plan: Hgb 10.9 this morning after being transfused 1 u pRBC yesterday per Dr. Reyes. Monitor closely Transfuse PRN Continue iron supplement if not NPO Subjective Date/time seen: 06/03/20 10:52 Interval history: Patient is a 70 year old female with a past medical history of osteoporosis, hypertension, type 2 diabetes mellitus and iron deficiency anemia who is here for evaluation of left hip fracture s/p fall on 06/01. Patient states she feels okay today, although just had an episode of emesis; nursing reports small amount without blood. Patient states left hip pain is reasonable with pain medication. She denies any eleni horses today. She is down about her recent in the family, but declines need for a
[2020-06-03] MEDS: LACTATED RINGERS 1,000 ML 30 ML IV CONT (14:30)
[2020-06-03] MEDS: VANCOMYCIN HCL 1,000 MG in SODIUM CHLORIDE 0.9% IV 250 ML IVPB (14:40)
--- NOTE | 2020-06-03 15:02 | WPDANESEPPF ---
Anes - Initial Pre Proc Eval Procedure: Operation Date: 06/03/20 15:30 Proposed Procedures p Left Intertrochanteric Nail - Jay Reyes MD Date/Time: 06/03/20 15:02 Surgeon: Keyshawn Lennon PA-C Pre Op Diagnosis: Fall with left hip pain Patient Data Age: 70 Gender: F Height: 5 ft 4 in Weight: 61.5 kg Last Vital Signs Temp 37.1 C 06/03/20 14:56 Pulse 112 H 06/03/20 14:56 Resp 18 06/03/20 14:56 BP 179/59 H 06/03/20 14:56 Pulse Ox 100 06/03/20 14:56 Allergies Allergy/AdvReac Type Severity Reaction Status Date / Time No Known Allergies Allergy Verified 06/01/20 19:46 Home Medications Medication Instructions Recorded Confirmed Type alendronate 70 mg PO WEEKLY 06/01/20 06/01/20 History amlodipine [Norvasc] 2.5 mg PO DAILY 06/01/20 06/01/20 History aspirin 81 mg PO DAILY 06/01/20 06/01/20 History atorvastatin 40 mg PO HS 06/01/20 06/01/20 History ferrous sulfate 325 mg PO BID 06/01/20 06/01/20 History insulin aspart U-100 [Novolog 5 unit SUBCUT TID 06/01/20 06/01/20 History Flexpen U-100 Insulin] insulin glargine U-300 conc 35 unit SUBCUT DAILY 06/01/20 06/01/20 History [Toujeo SoloStar U-300 Insulin] lisinopril 40 mg PO DAILY 06/01/20 06/01/20 History mirtazapine 30 mg PO HS 06/01/20 06/01/20 History omeprazole 40 mg PO DAILY 06/01/20 06/01/20 History ondansetron 4 mg PO Q6H PRN 06/01/20 06/01/20 History Laboratory Tests 06/02/20 06/02/20 06/02/20 08:08 15:19 15:19 WBC 15.7 K/mm3 H K/mm3 (4.5-10.0) RBC 4.06 M/mm3 L M/mm3 (4.2-5.4) Hgb 12.6 g/dL D g/dL (12.0-15.0) Hct 37.8 % % (37.0-47.0) MCV 93.1 fl fl (80-100) MCH 31.0 pg pg (26-34) MCHC 33.3 g/dl g/dl (32-36) RDW 13.6 % % (11.5-14.5) Plt Count 308 k/mm3 k/mm3 (150-375) MPV 9.7 fl fl (7.4-10.4) Sodium 136 mmol/L L mmol/L (137-145) Potassium 5.8 mmol/L H mmol/L (3.4-5.0) Chloride 103 mmol/L mmol/L (98-107) Carbon Dioxide 23 mmol/L mmol/L (22-30) Anion Gap 10 mmol/L mmol/L (8-16) BUN 30 mg/dL H mg/dL (7-17) Creatinine 1.80 mg/dL H mg/dL (0.7-1.0) Estim Creat Clear Calc 22 ml/min ml/min Estimated GFR 28 L (59 - ) Glucose 281 mg/dL H mg/dL (65-105) POC Capillary Glucose Calcium 9.6 mg/dL mg/dL (8.4-10.2) Magnesium Total Bilirubin AST ALT Alkaline Phosphatase Total Protein Albumin Crossmatch See Detail 06/02/20 06/02/20 06/02/20 16:05 20:42 21:12 WBC RBC Hgb Hct MCV MCH MCHC RDW Plt Count MPV Sodium 136 mmol/L L mmol/L (137-145) Potassium 5.4 mmol/L H mmol/L (3.4-5.0) Chloride 100 mmol/L mmol/L (98-107) Carbon Dioxide 25 mmol/L mmol/L (22-30) Anion Gap 11 mmol/L mmol/L (8-16) BUN 32 mg/dL H mg/dL (7-17) Creatinine 1.80 mg/dL H mg/dL (0.7-1.0) Estim Creat Clear Calc 22 ml/min ml/min Estimated GFR 28 L (59 - ) Glucose 207 mg/dL H mg/dL (65-105) POC Capillary Glucose 237 mg/dl H mg/dl 188 mg/dl H mg/dl (65-105) (65-105) Calcium 9.3 mg/dL mg/dL (8.4-10.2) Magnesium Total Bilirubin AST ALT Alkaline Phosphatase Total Protein Albumin Crossmatch 06/03/20 06/03/20 06/03/20 04:09 04:09 10:23 WBC 15.5 K/mm3 H K/mm3 (4.5-10.0) RBC 3.55 M/mm3 L M/mm3 (4.2-5.4) Hgb 10.9 g/dL L g/dL (12.0-15.0) Hct 33.2 % L % (37.0-47.0) MCV 93.5 fl fl (80-100) MC
--- NOTE | 2020-06-03 15:13 | WPDHPUPDATE1 ---
History and Physical Update Update Date/Time: 06/03/20 15:13 History and Physical has been reviewed, including an updated exam of the patient. There are NO changes in the patient's condition. Risks, benefits, and alternatives have been discussed and questions answered. Patient agrees to proceed with procedure.
[2020-06-03] MEDS: ceFAZolin 2 GM/D5W 50 ML 2 GM/50 ML BAG IVPB (15:29)
[2020-06-03] MEDS: ceFAZolin SODIUM 1 GM VIAL IRRIGATION (16:16)
--- NOTE | 2020-06-03 16:45 | P.OP_ITS ---
Procedure Note - Detailed Date of procedure: 06/03/20 Pre-op diagnosis: Fall with left hip pain Comminuted 4 part left intertrochanteric subtrochanteric femur fracture Post-op diagnosis: same Procedure performed: Open reduction internal fixation with Biomet trochanteric nail device Description of procedure: Patient brought to the operating room and general anesthesia was administered. She received 2 g of Ancef and 1 g of vancomycin preoperatively. The left thigh was scrubbed with a chlorhexidine cloth after she was transferred to the fracture table. Longitudinal traction was placed on the right foot with the boot that was padded well and the right hip flexed and abducted out of the way. We brought in fluoro and saw that we had satisfactory alignment on the AP and lateral views. The left thigh was prepped with DuraPrep and a shower curtain applied. A 1/2 inch longitudinal incision was made proximal to greater trochanter and a guide pin drilled through the tip of the greater trochanter going down the canal and this was confirmed to be in proper position in the lateral view. The starter reamers used to penetrate the ID band and the opening of the greater trochanter and a long guide danielle inserted. The canal was reamed to 13 mm which gave quite a bit of chatter so it was clear that the 11 mm nail would be appropriate. We chose the 22 cm Biomet PT and trochanteric nail which we saw would extend just distal to the isthmus giving appropriate fixation. This was we inserted this after reaming the proximal femur to 16 mm. When in under manual pressure. A guide pin was inserted the femoral head on the AP and lateral views being taping the appropriate neck shaft angle. The 90 mm telescoping lag screw was placed and the tip placed about 8 mm from subchondral bone obtained excellent purchase. With rotation set appropriately the sleeve was locked with the locking screw using the torque limiting screwdriver. We released the traction allowed the fracture to impact and then placed a single distal interlocking screw in the static mode without difficulty. Final fluoroscopic images showed appropriate alignment in all planes. Wounds were irrigated with antibiotic solution. The fascia closed with 0 Vicryl skin closed with 2 O subcutaneous Vicryl and skin glue EBL was 100 cc. She was transferred postop recovery room stable condition. There no complications with anesthesia. Anesthesia: GLMA Surgeon: Jay Reyes MD Welding Equipment Repairer Supervisor: brooks Estimated blood loss (mL): 100 Drains: No Packing: No Pathology: none sent Complications: No immediate complications Condition: stable Disposition: PACU
[2020-06-03 17:14] LABS: Glucose Point of Care 161 (65-105)
--- NOTE | 2020-06-03 17:22 | PC.NURSE ---
This patient, Joaquina Mcguire, was transferred to [[id number] ] on 06/03/20 at 1722. Personal belongings sent with patient. Belongings list checked and signed with receiving [ ]. Report given to [ Alyson]. Appropriate documentation sent with patient. Pt was transferred to room 306 directly from surgery. Belongings were sent to her room.
--- NOTE | 2020-06-03 17:47 | PC.NURSE ---
Patient received from PACU at 1745. Report given by Mercedes.
[2020-06-03] MEDS: INSULIN ASPART (*BKC) 100 UNITS/ML SUB-Q (17:59)
[2020-06-03] MEDS: ACETAMINOPHEN 325 MG TABLET 650 MG PO (18:02)
[2020-06-03 18:10] LABS: Glucose Point of Care 150 (65-105)
[2020-06-03 18:28] LABS: Hematocrit 34.7 % (37.0-47.0); Hemoglobin 11.3 g/dL (12.0-15.0)
[2020-06-03] MEDS: FAMOTIDINE 20 MG TABLET PO (21:15)
[2020-06-03] MEDS: MIRTAZAPINE SOLTAB 15 MG TAB.DISPER 30 MG PO (21:15)
[2020-06-03] MEDS: SENNA/DOCUSATE SODIUM TABLET 1 TAB PO (21:15)
[2020-06-03] MEDS: ATORVASTATIN 40 MG TABLET PO (21:15)
[2020-06-03] MEDS: INSULIN GLARGINE (*BKC) 100 UNITS/ML 35 UNITS SUB-Q (21:20)
[2020-06-03 22:47] LABS: Anion Gap 11 mmol/L (8-16); Blood Urea Nitrogen 33 mg/dL (7-17); Calcium 8.1 mg/dL (8.4-10.2); Carbon Dioxide 22 mmol/L (22-30); Chloride 97 mmol/L (98-107); Estimated CRCL calculation 21 ml/min; Estimated Glomerular Filt Rate 26; Glucose 290 mg/dL (65-105); Magnesium 2.2 mg/dL (1.6-2.3); Sodium 130 mmol/L (137-145)
[2020-06-03 22:56] LABS: Glucose Point of Care 245 (65-105)
[2020-06-04] VITALS (8 sets, daily range): BP systolic 123–155; BP diastolic 51–72; PULSE 78–104; RESP 16–20; TEMP 36.1–36.9; O2SAT 96–100
[2020-06-04] MEDS: ACETAMINOPHEN 325 MG TABLET 650 MG PO ×3 (00:03→12:00)
[2020-06-04 06:41] LABS: Basophils Percent Auto 0.2 % (0.2-1.2); Hematocrit 29.8 % (37.0-47.0); Hemoglobin 9.7 g/dL (12.0-15.0); Immature Granulocyte Percent A 0.7 % (0-0.5); Lymphocytes Absolute Auto 1.01 K/mm3 (0.9-3.2); Mean Corpuscular HGB Conc 32.6 g/dl (32-36); Mean Corpuscular Hemoglobin 30.4 pg (26-34); Mean Corpuscular Volume 93.4 fl (80-100); Mean Platelet Volume 9.6 fl (7.4-10.4); Monocytes Absolute Auto 1.7 K/mm3 (0.1-0.6); Monocytes Percent Auto 11.9 % (2.6-8.5); Neutrophils Absolute Auto 11.5 K/mm3 (1.3-6.7); Neutrophils Percent Auto 80.2 % (45.5-73.1); Platelet Count Result 264 k/mm3 (150-375); Red Blood Count 3.19 M/mm3 (4.2-5.4); Red Cell Distribution Width 13.3 % (11.5-14.5); White Blood Count 14.3 K/mm3 (4.5-10.0)
[2020-06-04 07:44] LABS: Potassium 4.9 mmol/L (3.4-5.0)
[2020-06-04 07:46] LABS: Anion Gap 10 mmol/L (8-16); Blood Urea Nitrogen 38 mg/dL (7-17); Carbon Dioxide 24 mmol/L (22-30); Chloride 97 mmol/L (98-107); Estimated CRCL calculation 21 ml/min; Estimated Glomerular Filt Rate 26; Glucose 250 mg/dL (65-105); Magnesium 2.3 mg/dL (1.6-2.3); Sodium 131 mmol/L (137-145)
[2020-06-04] MEDS: ONDANSETRON INJ 4 MG/2 ML VIAL IV PUSH (09:02)
[2020-06-04] MEDS: ASPIRIN 81 MG CHEWABLE TABLET PO (10:30)
[2020-06-04] MEDS: PANTOPRAZOLE 40 MG TABLET PO ×2 (10:30→18:22)
[2020-06-04] MEDS: FAMOTIDINE 20 MG TABLET PO ×2 (10:30→21:34)
[2020-06-04 12:25] LABS: Glucose Point of Care 205 (65-105)
--- NOTE | 2020-06-04 13:56 | PM.IMPN ---
Progress Note: A&P Assessment and Plan (1) Fracture of left hip due to osteoporosis: Code(s): M80.052A - Age-related osteoporosis with current pathological fracture, left femur, initial encounter for fracture Status: Acute Assessment and Plan: S/p ground level fall on 06/01. POD1 Open reduction internal fixation with Biomet trochanteric nail device per Dr. Reyes; following and appreciate recommendations. Pain appears to be fairly well controlled. Still occasional vomiting, but patient associating nausea from her iron pill Post op care, pain management, PT/OT, DVT ppx per Orthopedic Surgery Monitor CC working on placement (2) Hyperkalemia: Code(s): E87.5 - Hyperkalemia Status: Acute Assessment and Plan: K 4.9; improved this morning. She has no chest pains/palpitations. She does not take K supplements and has been taking lisinopril for many years. Tele has been d/c Monitor closely Consider Nephrology consult if this worsens (3) Renal failure: Code(s): N19 - Unspecified kidney failure Status: Acute Assessment and Plan: Although the patient denies history of chronic renal failure, she likely does have some baseline kidney insufficiency that she is unaware of. Cr stable at 1.80. Renal US 06/04 shows mild hydronephrosis Monitor daily Will likely give Nephrology and Urology referral at discharge for further work up as outpatient (4) Diabetes mellitus: Code(s): E11.9 - Type 2 diabetes mellitus without complications Status: Acute Assessment and Plan: Reportedly, patient has had significant improvement in her A1c (14 several months ago down to around 8 just this past couple of weeks per patient). A1c 8.5 this stay Will do 35 u Lantus daily 5 u short acting insulin with meals Accuchecks ACHS, hypoglycemia protocol, correctional insulin, diabetic diet if tolerated Monitor (5) Hypertension: Qualifiers: Hypertension type: essential hypertension Qualified Code(s): I10 - Essential (primary) hypertension Code(s): I10 - Essential (primary) hypertension Status: Acute Assessment and Plan: BP has been significantly elevated into 200s sys earlier in stay. BP today in 140s; some improvement Lisinopril held due to renal function/hyperkalemia Continue with increased dose of amlodipine for now IV hydralazine PRN Monitor and adjust accordingly (6) Dyslipidemia: Code(s): E78.5 - Hyperlipidemia, unspecified Status: Acute Assessment and Plan: LFTs wnl Continue statin (7) Anemia: Code(s): D64.9 - Anemia, unspecified Status: Acute Assessment and Plan: Hgb 9.7 this morning. likely component of blood loss from surgery. Transfused 1 u pRBC prior to surgery per Dr. Reyes Monitor closely Transfuse PRN Will hold iron pill as this makes her nauseous Subjective Date/time seen: 06/04/20 13:56 Interval history: Patient is a 70 year old female with a past medical history of osteoporosis, hypertension, type 2 diabetes mellitus and iron deficiency anemia who is here for evaluation of left hip fracture s/p fall on 06/01; POD 1 s/p open reduction internal fixation with Biomet trochanteric nail device per Dr. Reyes. Patient states she feels okay today. She had episode of mild n/v per nursing and patient thinks her iron pill is what is making her nauseous. Pain is reasonable, pain mainly in her left thigh/hip. [place] hot when working with therapy but feels better now. Denies current f/c/s, headaches, dizziness, lightheadedness, cp/palpitations, sob/cough, d/c, abd pain, changes in BMs, calf pain/swelling in lower legs. Review of Systems Review of Syste
[2020-06-04] MEDS: INSULIN ASPART (*BKC) 100 UNITS/ML SUB-Q ×2 (14:00→18:22)
[2020-06-04] MEDS: amLODIPine BESYLATE 5 MG TABLET PO (14:24)
[2020-06-04] MEDS: ENOXAPARIN 30 MG/0.3 ML SYRINGE SUB-Q (14:24)
[2020-06-04] MEDS: polyethylene glycoL 3350 17 GM POWD.PACK PO (14:27)
[2020-06-04] MEDS: VANCOMYCIN HCL 750 MG in SODIUM CHLORIDE 0.9% IV 250 ML IVPB (14:36)
--- NOTE | 2020-06-04 15:28 | PM.PNORT ---
Progress Note: A&P Additional Plan patient is now postop day 1 following open reduction internal fixation of comminuted 4 part left intertrochanteric hip fracture. She is doing well. She is alert and oriented. She is comfortable at rest. She is still complaining of nausea and vomiting. We have her on a scheduled 2.5 mg oxycodone q.4 hours. Is not sure whether she is observing the Tylenol and I think we will switch her to IV Tylenol 1000 mg q.8 hours for 24 hours and if her nausea and vomiting is resolved tomorrow then we will put her on oral Tylenol. I have switched her oxycodone to p.r.n. only. Her wounds are dry shows no drainage no significant thigh swelling. Her hemoglobin this morning is stable at 9.7. She has intact sensation and motor function in the left leg. She is very thin and I think we will discontinue the Jr hose with a do not cause skin problems. Her creatinine is 1.9 which is stable. She has been up to the chair with physical therapy. She seems stable postoperatively so far. Subjective Subjective Date/Time Seen: 06/04/20 15:28 Objective Data Vital Signs Vital Signs: Vital Signs - 24 hr 06/03/20 16:00 06/03/20 16:47 06/03/20 17:00 Temperature 37.2 C Pulse Rate 83 93 98 Respiratory Rate 22 H 16 Blood Pressure 138/71 174/76 H Pulse Oximetry 100 100 06/03/20 17:15 06/03/20 17:20 06/03/20 17:30 Temperature 36.4 C L Pulse Rate 100 103 H 100 Respiratory Rate 15 18 17 Blood Pressure 183/64 H 183/51 H 190/62 H Pulse Oximetry 97 95 97 06/03/20 17:35 06/03/20 18:05 06/03/20 19:05 Temperature 36.1 C L 36.5 C 36.6 C Pulse Rate 102 H 102 H 110 H Respiratory Rate 18 18 18 Blood Pressure 187/67 H 177/62 H 175/61 H Pulse Oximetry 97 96 98 06/03/20 21:10 06/04/20 01:50 06/04/20 06:28 Temperature 36.2 C L 36.1 C L 36.1 C L Pulse Rate 111 H 94 93 Respiratory Rate 16 18 16 Blood Pressure 109/68 123/69 138/72 Pulse Oximetry 95 98 98 06/04/20 07:05 06/04/20 11:05 06/04/20 15:05 Temperature 36.9 C 36.6 C 36.7 C Pulse Rate 96 92 78 Respiratory Rate 18 18 20 Blood Pressure 147/53 H 140/59 L 151/57 H Pulse Oximetry 100 98 96 Intake/Output Intake/Output: Intake & Output 06/01/20 06/02/20 06/03/20 06/04/20 23:59 23:59 23:59 23:59 Intake Total 1000 1365 2700 300 Output Total 2300 1475 650 Balance 1000 -935 1225 -350 Meds/Results Medications: Active Medications Generic Name Dose Route Start Last Admin Trade Name Freq PRN Reason Stop Dose Admin Al Hydrox/Mg Hydrox/Simethicone 30 ml 06/03/20 17:20 Mylanta PO Q6H PRN Indigestion Amlodipine Besylate 5 mg 06/03/20 09:00 06/04/20 14:24 Norvasc PO 5 mg DAILY [facility] Administration Aspirin 81 mg 06/02/20 09:00 06/04/20 10:30 Aspirin Chewable PO 81 mg DAILY [facility] Administration Atorvastatin Calcium 40 mg 06/02/20 21:00 06/03/20 21:15 Lipitor PO 40 mg HS [facility] Administration Enoxaparin Sodium 30 mg 06/04/20 09:00 06/04/20 14:24 Lovenox SUB-Q 30 mg DAILY [facility] Administration Ergocalciferol 50,000 unit 06/02/20 09:00 06/02/20 08:25 Drisdol PO 07/14/20 09:00 Not Given WEEKLY [facility] Famotidine 20 mg 06/03/20 21:00 06/04/20 10:30 Pepcid PO 20 mg Q12HR [facility] Administration Ferrous Sulfate 324 mg 06/02/20 09:00 06/03/20 18:46 Ferrous Sulfate PO 324 mg BID [facility] Administration Hydroxyzine HCl 50 mg 06/03/20 17:20 Atarax Tablet PO Q4H PRN Itching Acetaminophen 1,000 mg in 100 mls @ 400 mls/hr 06/04/20 15:25 Ofirmev 1,000 Mg Ivpb IVPB 06/05/20 15:26 Q8H [facility] Insulin Aspart 5 units 06/02/20 08:00 06/04/20 14:00 Novolog SUB-Q 5 units TIDWM [facility] Administration Insulin Glargine 35 units 06/02/20 21:00 06/03/20 21:20 Lantus SUB-Q 35 units HS [facility] Administration Magnesium Hydroxide 30 ml 06/03/20 17:20 Milk Of Magnesia PO BID PRN Constipation Mirtazapine 30 mg 06/02/20 21:00 06/03/20 21:15
[2020-06-04 17:07] LABS: Glucose Point of Care 146 (65-105)
[2020-06-04] MEDS: ATORVASTATIN 40 MG TABLET PO (21:34)
[2020-06-04] MEDS: SENNA/DOCUSATE SODIUM TABLET 1 TAB PO (21:34)
[2020-06-04] MEDS: MIRTAZAPINE SOLTAB 15 MG TAB.DISPER 30 MG PO (21:34)
[2020-06-04] MEDS: INSULIN GLARGINE (*BKC) 100 UNITS/ML 35 UNITS SUB-Q (21:40)
[2020-06-04 23:09] LABS: Glucose Point of Care 202 (65-105)
[2020-06-05 02:00] VITALS: BP 144/54; PULSE 97; RESP 16; TEMP 36.9; O2SAT 97
[2020-06-05 06:00] VITALS: BP 138/48; PULSE 91; RESP 16; TEMP 36.6; O2SAT 96
[2020-06-05 07:17] LABS: Hematocrit 27.6 % (37.0-47.0); Mean Corpuscular HGB Conc 32.6 g/dl (32-36); Mean Corpuscular Hemoglobin 30.9 pg (26-34); Mean Corpuscular Volume 94.8 fl (80-100); Mean Platelet Volume 9.7 fl (7.4-10.4); Platelet Count Result 294 k/mm3 (150-375); Red Blood Count 2.91 M/mm3 (4.2-5.4); Red Cell Distribution Width 13.6 % (11.5-14.5); White Blood Count 12.6 K/mm3 (4.5-10.0)
[2020-06-05 07:35] LABS: Anion Gap 8 mmol/L (8-16); Blood Urea Nitrogen 43 mg/dL (7-17); Carbon Dioxide 24 mmol/L (22-30); Chloride 100 mmol/L (98-107); Estimated CRCL calculation 22 ml/min; Estimated Glomerular Filt Rate 28; Glucose 102 mg/dL (65-105); Magnesium 2.4 mg/dL (1.6-2.3); Potassium 4.2 mmol/L (3.4-5.0); Sodium 132 mmol/L (137-145)
[2020-06-05] MEDS: polyethylene glycoL 3350 17 GM POWD.PACK PO (07:53)
[2020-06-05] MEDS: ENOXAPARIN 30 MG/0.3 ML SYRINGE SUB-Q (07:54)
[2020-06-05] MEDS: amLODIPine BESYLATE 5 MG TABLET PO (07:54)
[2020-06-05] MEDS: ASPIRIN 81 MG CHEWABLE TABLET PO (07:54)
[2020-06-05] MEDS: FAMOTIDINE 20 MG TABLET PO ×2 (07:54→21:29)
[2020-06-05] MEDS: PANTOPRAZOLE 40 MG TABLET PO ×2 (07:55→16:10)
[2020-06-05] MEDS: INSULIN ASPART (*BKC) 100 UNITS/ML SUB-Q (07:56)
[2020-06-05 08:00] VITALS: PULSE 91; RESP 16; O2SAT 96
[2020-06-05 08:38] VITALS: BP 130/58; PULSE 99; RESP 16; TEMP 36.3; O2SAT 100
[2020-06-05] MEDS: ONDANSETRON INJ 4 MG/2 ML VIAL IV PUSH (10:25)
--- NOTE | 2020-06-05 12:11 | PM.IMPN ---
Progress Note: A&P Assessment and Plan (1) Fracture of left hip due to osteoporosis: Code(s): M80.052A - Age-related osteoporosis with current pathological fracture, left femur, initial encounter for fracture Status: Acute Assessment and Plan: S/p ground level fall on 06/01. POD2 Open reduction internal fixation with Biomet trochanteric nail device per Dr. Reyes who is following and appreciate recommendations. Pain appears to be fairly well controlled. No N/v today Post op care, pain management, PT/OT, DVT ppx per Orthopedic Surgery Monitor CC working on placement (2) Hyperkalemia: Code(s): E87.5 - Hyperkalemia Status: Acute Assessment and Plan: K 4.2. She has no chest pains/palpitations. She does not take K supplements and has been taking lisinopril for many years. Tele has been d/c Monitor closely Consider Nephrology consult if this worsens (3) Renal failure: Code(s): N19 - Unspecified kidney failure Status: Acute Assessment and Plan: Although the patient denies history of chronic renal failure, she likely does have some baseline kidney insufficiency that she is unaware of. Cr stable at 1.80. Renal US 06/04 shows mild hydronephrosis. Received call from nursing yesterday stating patient was retaining >400 ccs, although today nursing states she is urinating well. Suspect mild hydronephrosis is due to retention postoperatively. Monitor daily Will likely give Nephrology and Urology referral at discharge for further work up as outpatient (4) Diabetes mellitus: Code(s): E11.9 - Type 2 diabetes mellitus without complications Status: Acute Assessment and Plan: Reportedly, patient has had significant improvement in her A1c (14 several months ago down to around 8 just this past couple of weeks per patient). A1c 8.5 this stay Will do 35 u Lantus daily 5 u short acting insulin with meals Accuchecks ACHS, hypoglycemia protocol, correctional insulin, diabetic diet if tolerated Monitor (5) Hypertension: Qualifiers: Hypertension type: essential hypertension Qualified Code(s): I10 - Essential (primary) hypertension Code(s): I10 - Essential (primary) hypertension Status: Acute Assessment and Plan: BP has been significantly elevated into 200s sys earlier in stay. BP today in 130-140s; some improvement Lisinopril held due to renal function/hyperkalemia Continue with increased dose of amlodipine for now IV hydralazine PRN Monitor and adjust accordingly (6) Dyslipidemia: Code(s): E78.5 - Hyperlipidemia, unspecified Status: Acute Assessment and Plan: LFTs wnl Continue statin (7) Anemia: Code(s): D64.9 - Anemia, unspecified Status: Acute Assessment and Plan: Hgb 9.0 this morning. likely component of blood loss from surgery. Transfused 1 u pRBC prior to surgery per Dr. Reyes Monitor closely Transfuse PRN Will hold iron pill as this makes her nauseous Subjective Date/time seen: 06/05/20 12:11 Interval history: Patient is a 70 year old female with a past medical history of osteoporosis, hypertension, type 2 diabetes mellitus and iron deficiency anemia who is here for evaluation of left hip fracture s/p fall on 06/01; POD 2 s/p open reduction internal fixation with Biomet trochanteric nail device per Dr. Reyes. Patient states she feels okay today, just a bit tired. Pain still occasionally present but controlled with her pain regimen. No nausea/vomiting today. After hours last night, received a call from nursing that patient was retaining urine, however, when questioning nursing today, they state this has resolved and is urinating fi
--- NOTE | 2020-06-05 12:14 | PM.PNORT ---
Progress Note: A&P Additional Plan Postop day 2. After internal fixation left intertrochanteric hip fracture. Patient is afebrile with stable vital signs. Remains somewhat hypertensive. Creatinine clearance 22 creatinine 1.8 unchanged. Hemoglobin is 9.0. She has chronic anemia and acute blood loss anemia superimposed because of her fracture. She is on renal dose Lovenox as well as aspirin daily. She is alert and oriented. She has taken a few steps going to the commode and to the chair. We will try and have her up to the chair 3 times a day now. Her nausea and vomiting seems to be gone. We discontinue the scheduled oxycodone low-dose and that may have been a contributor. She has ordered a grill cheese and has an appetite now and we will stop her IV Tylenol and switched to oral Tylenol. She does feel some pain now but she does not wish to have anything stronger for the pain as it is tolerable. The plan will be for her to be transferred from here to a residential unit in [facility] closer to her home so her sister can visit her. Subjective Subjective Date/Time Seen: 06/05/20 12:14 Objective Data Vital Signs Vital Signs: Vital Signs - 24 hr 06/04/20 15:05 06/04/20 19:34 06/04/20 22:00 Temperature 36.7 C 36.5 C 36.8 C Pulse Rate 78 86 104 H Respiratory Rate 20 18 20 Blood Pressure 151/57 H 146/58 H 155/51 H Pulse Oximetry 96 98 98 06/05/20 02:00 06/05/20 06:00 06/05/20 08:00 Temperature 36.9 C 36.6 C Pulse Rate 97 91 91 Respiratory Rate 16 16 16 Blood Pressure 144/54 H 138/48 L Pulse Oximetry 97 96 96 06/05/20 08:38 Temperature 36.3 C L Pulse Rate 99 Respiratory Rate 16 Blood Pressure 130/58 L Pulse Oximetry 100 Intake/Output Intake/Output: Intake & Output 06/02/20 06/03/20 06/04/20 06/05/20 23:59 23:59 23:59 23:59 Intake Total 1365 2700 1180 200 Output Total 2300 1475 1025 Balance -935 1225 155 200 Meds/Results Medications: Active Medications Generic Name Dose Route Start Last Admin Trade Name Freq PRN Reason Stop Dose Admin Al Hydrox/Mg Hydrox/Simethicone 30 ml 06/03/20 17:20 Mylanta PO Q6H PRN Indigestion Amlodipine Besylate 5 mg 06/03/20 09:00 06/05/20 07:54 Norvasc PO 5 mg DAILY [facility] Administration Aspirin 81 mg 06/02/20 09:00 06/05/20 07:54 Aspirin Chewable PO 81 mg DAILY [facility] Administration Atorvastatin Calcium 40 mg 06/02/20 21:00 06/04/20 21:34 Lipitor PO 40 mg HS [facility] Administration Enoxaparin Sodium 30 mg 06/04/20 09:00 06/05/20 07:54 Lovenox SUB-Q 30 mg DAILY [facility] Administration Ergocalciferol 50,000 unit 06/02/20 09:00 06/02/20 08:25 Drisdol PO 07/14/20 09:00 Not Given WEEKLY [facility] Famotidine 20 mg 06/03/20 21:00 06/05/20 07:54 Pepcid PO 20 mg Q12HR [facility] Administration Ferrous Sulfate 324 mg 06/02/20 09:00 06/04/20 16:53 Ferrous Sulfate PO Not Given BID [facility] Hydroxyzine HCl 50 mg 06/03/20 17:20 Atarax Tablet PO Q4H PRN Itching Acetaminophen 1,000 mg in 100 mls @ 400 mls/hr 06/04/20 20:00 06/05/20 11:42 Ofirmev 1,000 Mg Ivpb IVPB 06/05/20 20:01 400 mls/hr Q8H [facility] Administration Insulin Aspart 5 units 06/02/20 08:00 06/05/20 07:56 Novolog SUB-Q 5 units TIDWM [facility] Administration Insulin Glargine 35 units 06/02/20 21:00 06/04/20 21:40 Lantus SUB-Q 35 units HS [facility] Administration Magnesium Hydroxide 30 ml 06/03/20 17:20 Milk Of Magnesia PO BID PRN Constipation Mirtazapine 30 mg 06/02/20 21:00 06/04/20 21:34 Remeron Soltab PO 30 mg HS [facility] Administration Morphine Sulfate 2 mg 06/03/20 17:20 Morphine Sulfate Inj IV PUSH Q3H PRN Pain Rated 7-10 Naloxone HCl 0.1 mg 06/03/20 17:20 Narcan IV PUSH Q2M PRN Opiate Reversal Ondansetron HCl 4 mg 06/03/20 17:20 06/05/20 10:25 Zofran Inj IV PUSH 4 mg Q4H PRN Administration Nausea And Vomiting Oxycodone HCl 2.5 m
[2020-06-05 12:57] LABS: Glucose Point of Care 56 (65-105)
[2020-06-05 13:34] LABS: Glucose 86 mg/dL (65-105)
[2020-06-05 13:51] LABS: Glucose Point of Care 136 (65-105)
[2020-06-05 14:00] VITALS: BP 132/54; PULSE 103; RESP 18; TEMP 36.3; O2SAT 97
[2020-06-05] MEDS: ACETAMINOPHEN 325 MG TABLET 650 MG PO (16:11)
[2020-06-05 16:53] LABS: Glucose Point of Care 302 (65-105)
[2020-06-05] MEDS: INSULIN GLARGINE (*BKC) 100 UNITS/ML 20 UNITS SUB-Q (18:34)
[2020-06-05] MEDS: MIRTAZAPINE SOLTAB 15 MG TAB.DISPER 30 MG PO (21:29)
[2020-06-05] MEDS: ATORVASTATIN 40 MG TABLET PO (21:30)
[2020-06-05 21:45] LABS: Glucose Point of Care 272 (65-105)
[2020-06-05 22:00] VITALS: BP 147/46; PULSE 101; RESP 20; TEMP 36.8; O2SAT 99
[2020-06-05] MEDS: INSULIN GLARGINE (*BKC) 100 UNITS/ML 15 UNITS SUB-Q (23:19)
[2020-06-06] MEDS: ACETAMINOPHEN 325 MG TABLET 650 MG PO ×4 (01:22→17:09)
[2020-06-06] MEDS: ONDANSETRON INJ 4 MG/2 ML VIAL IV PUSH (03:50)
[2020-06-06 06:00] VITALS: BP 153/51; PULSE 93; RESP 16; TEMP 36.3; O2SAT 99
[2020-06-06 06:35] LABS: Hematocrit 28.3 % (37.0-47.0); Hemoglobin 9.1 g/dL (12.0-15.0); Mean Corpuscular HGB Conc 32.2 g/dl (32-36); Mean Corpuscular Hemoglobin 30.5 pg (26-34); Mean Platelet Volume 9.4 fl (7.4-10.4); Platelet Count Result 323 k/mm3 (150-375); Red Blood Count 2.98 M/mm3 (4.2-5.4); Red Cell Distribution Width 13.5 % (11.5-14.5); White Blood Count 12.4 K/mm3 (4.5-10.0)
[2020-06-06 06:50] LABS: Anion Gap 7 mmol/L (8-16); Blood Urea Nitrogen 44 mg/dL (7-17); Carbon Dioxide 23 mmol/L (22-30); Chloride 102 mmol/L (98-107); Estimated CRCL calculation 20 ml/min; Estimated Glomerular Filt Rate 25; Glucose 143 mg/dL (65-105); Magnesium 2.6 mg/dL (1.6-2.3); Potassium 4.4 mmol/L (3.4-5.0); Sodium 132 mmol/L (137-145)
[2020-06-06 08:43] LABS: Glucose Point of Care 124 (65-105)
[2020-06-06] MEDS: INSULIN ASPART (*BKC) 100 UNITS/ML SUB-Q (08:54)
[2020-06-06] MEDS: INSULIN GLARGINE (*BKC) 100 UNITS/ML 26 UNITS SUB-Q (08:56)
[2020-06-06] MEDS: FAMOTIDINE 20 MG TABLET PO ×2 (08:56→20:30)
[2020-06-06] MEDS: amLODIPine BESYLATE 5 MG TABLET PO (08:56)
[2020-06-06] MEDS: ASPIRIN 81 MG CHEWABLE TABLET PO (08:56)
[2020-06-06] MEDS: ENOXAPARIN 30 MG/0.3 ML SYRINGE SUB-Q (08:56)
[2020-06-06] MEDS: PANTOPRAZOLE 40 MG TABLET PO ×2 (08:57→17:08)
[2020-06-06] MEDS: SODIUM CHLORIDE 0.9% IV 1,000 ML 75 ML IV CONT (09:02)
[2020-06-06 09:50] VITALS: O2SAT 98
--- NOTE | 2020-06-06 11:56 | PM.DS ---
DS: Admitting Diagnosis Admitting Diagnosis Admitting Diagnosis: left hip fracture DS: Discharge Diagnosis Discharge Diagnosis (1) Fracture of left hip due to osteoporosis: Code(s): M80.052A - Age-related osteoporosis with current pathological fracture, left femur, initial encounter for fracture Status: Acute Assessment and Plan: S/p ground level fall on 06/01. POD3 Open reduction internal fixation with Biomet trochanteric nail device per Dr. Reyes who is following and appreciate recommendations. Pain appears to be fairly well controlled. She is feeling better today; no n/v, tolerating po, pain is better today. No other complaints Post op care, pain management, PT/OT, DVT ppx per Orthopedic Surgery Okay for discharge from ortho standpoint Will discharge to inpt rehab vs snf. CC following (2) Hyperkalemia: Code(s): E87.5 - Hyperkalemia Status: Acute Assessment and Plan: K 4.4. She has no chest pains/palpitations. She does not take K supplements and has been taking lisinopril for many years. Tele has been d/c Monitor closely Consider Nephrology consult if this worsens (3) Renal failure: Code(s): N19 - Unspecified kidney failure Status: Acute Assessment and Plan: Although the patient denies history of chronic renal failure, she likely does have some baseline kidney insufficiency that she is unaware of. Cr slightly increased to 2.00 today; relatively stable. Renal US 06/04 shows mild hydronephrosis, possibly related to retention post op. Monitor daily Will recommend Nephrology and Urology referral at discharge for further work up as outpatient BMP later this week (4) Diabetes mellitus: Code(s): E11.9 - Type 2 diabetes mellitus without complications Status: Acute Assessment and Plan: Reportedly, patient has had significant improvement in her A1c (14 several months ago down to around 8 just this past couple of weeks per patient). A1c 8.5 this stay. Episode of hypoglycemia yesterday which was followed by hyperglycemic episode. Meds resumed. BGL 100s today Will do 35 u Lantus daily 5 u short acting insulin with meals Accuchecks ACHS, hypoglycemia protocol, correctional insulin, diabetic diet if tolerated Monitor (5) Hypertension: Qualifiers: Hypertension type: essential hypertension Qualified Code(s): I10 - Essential (primary) hypertension Code(s): I10 - Essential (primary) hypertension Status: Acute Assessment and Plan: BP has been significantly elevated into 200s sys earlier in stay. BP today in 150s sys prior to medication; some improvement Lisinopril held/stopped due to renal function/hyperkalemia Will discharge on 5 mg amlodipine IV hydralazine PRN during stay F/u with PCP for further management (6) Dyslipidemia: Code(s): E78.5 - Hyperlipidemia, unspecified Status: Acute Assessment and Plan: LFTs wnl Continue statin (7) Anemia: Code(s): D64.9 - Anemia, unspecified Status: Acute Assessment and Plan: Hgb 9.1 this morning. likely component of superimposed blood loss on chronic anemia from surgery. Transfused 1 u pRBC prior to surgery per Dr. Reyes Monitor closely Transfuse PRN Will hold iron pill as this makes her nauseous; resume at discharge DS: Summary Hospital Course Reason for hospitalization: Left hip fracture, hyperkalemia, renal failure Hospital Course: Patient is a 70 yo F with history of osteoporosis, hypertension, type 2 diabetes mellitus and iron deficiency anemia who presented to the ER on 06/01 after having fallen and developing left hip pain. While in the ED she was found to have a left commin
[2020-06-06 12:20] LABS: SARS-CoV-2 RNA PCR Negative
[2020-06-06 13:02] LABS: Glucose Point of Care 135 (65-105)
[2020-06-06 17:43] LABS: Glucose Point of Care 63 (65-105)
[2020-06-06 17:43] LABS: Glucose Point of Care 77 (65-105)
[2020-06-06] MEDS: SENNA/DOCUSATE SODIUM TABLET 1 TAB PO (20:30)
[2020-06-06] MEDS: ATORVASTATIN 40 MG TABLET PO (20:30)
[2020-06-06] MEDS: MIRTAZAPINE SOLTAB 15 MG TAB.DISPER 30 MG PO (20:31)
== END 2020-06-06 21:20 | DRG 481 ==
LOC: ANHED 22:19 → ANHIMU 22:50 → ANH3MEDSUR 06-06 12:22 → ANHIMU 06-08 13:29
PROVIDERS: Orthopaedic Surgery; Physician Assistant Surgical; Admitting Provider Internal Medicine; Emergency Provider Emergency Medicine; Visit Provider Physician Assistant
PROC: 0QS704Z Reposition Left Upper Femur with Internal Fixation Device, Open Approach (ICD-10-PCS; CPT 27245; principal; 2020-06-03 15:30)
DX: S72.142A Displaced intertrochanteric fracture of left femur, initial encounter for closed fracture (principal); N17.9 Acute kidney failure, unspecified; D62 Acute posthemorrhagic anemia; W19.XXXA Unspecified fall, initial encounter; E87.5 Hyperkalemia; I10 Essential (primary) hypertension; E78.5 Hyperlipidemia, unspecified; D50.9 Iron deficiency anemia, unspecified; E11.9 Type 2 diabetes mellitus without complications; Z20.828 Contact with and (suspected) exposure to other viral communicable diseases
CPT/HCPCS: 36415; 36430; 51702; 71045; 73502; 76775; 78452; 80048; 80053; 81001; 82306; 82550; 82947; 83036; 83735; 85014; 85018; 85025; 85027; 85610; 85730; 86850; 86900; 86901; 86920; 87635; 93005; 93017; 96374; 96375; 97110; 97116; 97161; 97165; 97530; 97535; 99285; A9270; A9502; C1713; C9803; J0131; J0360; J0610; J0690; J1650; J1815; J1940; J2270; J2405; J2704; J2785; J3010; J3370; J3475; J7030; J7050; J7120; P9016; U0003